=== PATIENT | male | born 1975 | race Caucasian/White ===

== ENCOUNTER 2020-09-05 13:09 | Outpatient (RCR) | payer BC, SELFPAY | END 2020-11-18 23:59 | LOC: IMMUN 13:09 | PROVIDERS: Visit Provider Family Medicine | DX: Z23 Encounter for immunization (principal) | CPT/HCPCS: 0001A; 0002A; 91300 ==

== ENCOUNTER 2021-10-14 06:45 | Observation (INO) | payer BC, SELFPAY ==
[2021-10-14] VITALS (9 sets, daily range): BP systolic 103–162; BP diastolic 74–105; PULSE 65–116; RESP 14–18; TEMP 35.9–36.9; O2SAT 93–100; BMI 34.0
--- NOTE | 2021-10-14 | APP_PTH ---
PATIENT: JHONY SON LOC: [facility]3 U#:[id number] AGE/SX: 46/M ROOM: [facility] RE10/14/[address]: Dr. Nathaniel Tomas MD : 1975 BED: 1 DIS: 10/14/2021 SPEC #: [id number] RECD: 10/14/21 13:19 STATUS: LANDON RAMOSMychal #: [id number] DAXA: 10/14/21 00:[address]: Nathaniel Tomas DEPT: SURGICAL PATHOLOGY RECD BY: Jacob Monaco ENTERED: 10/15/21 08:03 SP TYPE: APPENDIX OTHR DR: No Primary Care Phys Tissues: Appendix, NOS Procedures: Surgery Specimen Level III HEADER OPERATION: Laparoscopic Appendectomy PRE-OP DIAGNOSIS: Acute Appendicitis TISSUE SUBMITTED: Appendix MICROSCOPIC DIAGNOSIS Appendix, appendectomy: Acute appendicitis. Acute serositis. AM:italo 10/16/2021 MICROSCOPIC DESCRIPTION Slides are reviewed. GROSS DESCRIPTION Received in fixative is one container labeled with the patient's name and designated appendix. The specimen consists of a C-shaped appendix measuring 8.5 cm in length and up to 1.5 cm in diameter. The attached periappendiceal adipose tissue measures up to 1.5 cm in width. No obvious perforation is identified. The lumen contains fecal material. No fecalith is identified. Lead Infrastructure Architect sections are submitted in two cassettes. / SJ:italo 10/15/2021 TC:2 CPT: 85279
--- NOTE | 2021-10-14 07:14 | US_ITS ---
STUDY: ABDOMINAL ULTRASOUND - RIGHT UPPER QUADRANT REASON FOR VISIT: Male, 46 years old pain -- EPIGASTRIC PAIN X 1 DAY TECHNIQUE: Ultrasound evaluation of the right upper quadrant was performed with real-time and static caban-scale imaging. TECHNICAL QUALITY: Adequate. COMPARISON: None. FINDINGS: Liver: The liver measures 16.9 cm. There is increased echogenicity consistent with fatty infiltration. The bile ducts are within normal limits. There is hepatic color flow. The direction of portal flow is hepatopetal. There is a 2 cm x 1.6 cm x 2.1 cm echogenic nodule in the right lobe of the liver suggestive of an hemangioma. Gallbladder: Normal distended gallbladder. The gallbladder wall measures 2.9 mm. There is a negative sonographic Gibson''s sign. There is no pericholecystic fluid. There are no gallstones. Common Bile Duct (C.B.D.): The common bile duct measures 6.3 mm. Pancreas: Normal size of the head, body and tail of the pancreas. There is increased echogenicity of the pancreas. There is no demonstrated pancreatic mass or cyst. Right Kidney: Normal size of the right kidney. The right kidney measures 12.5 cm x 5.2 cm x 6.4 cm. Normal renal cortex. The right cortex measures 1.8 cm. There is no demonstrated renal mass or cyst. There is no right hydronephrosis. US/Gallbladder IMPRESSION: Mild degree of fatty infiltration of the liver. Incidental finding is made of a 2 cm x 1.6 cm x 2.1 cm hemangioma in the right lobe of the liver. Electronically Signed: Sunny Rolon MD at 8:41 EDT ,
--- NOTE | 2021-10-14 07:16 | EX.ED.DYSGE1 ---
HPI History of Present Illness Chief Complaint: Abd Pain Narrative Narrative: Patient is a 46-year-old male with no reported significant medical or surgical history. He states that he is traveling right now for work and he awoke around 1 or 2 in the morning with generalized abdominal discomfort. He states it felt like there was a muscle cramp but deep within his stomach. He states that he felt he had to have a bowel movement and did so and that it was normal without any type of diarrhea or blood. He also states he urinated and there is no pain with this or discoloration. He states he tried to lay back down and go to sleep but the pain has been persistent and secondary to this he comes in for evaluation [facility] Medical History no medical history no medical history Home Medications NK 10/14/21 [History Last Taken Unknown] Allergy/AdvReac Type Severity Reaction Status Date / Time No Known Allergies Allergy Verified 10/14/21 06:46 Surgical History (Updated 10/14/21 @ 06:47 by Fausto Arenas) H/O vasectomy Social History Smoking Status: Never smoker ROS [facility] ED Constitutional Constitutional ED: Denies chills or fever(s) ENT ENT ED: Denies sore throat Cardiovascular Cardiovascular: Denies chest pain Respiratory/Chest Respiratory/Chest: Denies cough or dyspnea Gastrointestinal Gastrointestinal: Reports abdominal pain; Denies constipation, diarrhea, nausea or vomiting Genitourinary Genitourinary ED: Denies dysuria or hematuria Musculoskeletal Musculoskeletal: Denies back pain or myalgias Integumentary Denies rash Neurologic Neurologic: Denies headache(s) Hematologic/Lymphatic Hematologic/Lymphatic: Denies easy bleeding or easy bruising EXAM Physical Exam Const Vital Signs: 10/14/21 06:47 Temperature 96.7 F L Temperature Source Temporal Pulse Rate 65 Respiratory Rate 16 Blood Pressure 162/101 H Blood Pressure Mean 121 Pulse Ox 100 Oxygen Delivery Method Room Air Positive well nourished and well developed General Appearance ED: well developed HEENT Reports moist mucous membranes Eyes PERRL and EOMs intact bilaterally General Eye ED: Negative for scleral icterus Neck supple Resp normal respiratory effort and clear to auscultation bilaterally Cardio regular rate and regular rhythm Rate: other Other Details: Radial pulses are +2-4 bilaterally are equal and symmetric GI non-distended GI Narrative: Abdomen is soft and nondistended with slightly hyperactive bowel sounds. There is pain with palpation in the midepigastric and right upper quadrant but greatest in the right upper quadrant with mild guarding at the site. There is also mild pain with palpation in the right lower quadrant but negative heel strike psoas and obturator signs. No fluid wave or pulsatile mass Palpation: soft Back/Spine no CVA tenderness Extremity normal to inspection Neuro oriented x3 and CN's II-XII intact bilaterally Sensorium / Orientation: alert Motor Exam: strength 5/5 throughout Psych mental status grossly normal Skin no rashes or lesions noted MDM MDM MDM Narrative Medical decision making narrative: Patient presented to the ER hypertensive but this is secondary to pain but otherwise afebrile. His pain is greatest in the right upper quadrant so therefore elected to start with basic blood work and a ultrasound. His white blood cell count is slightly elevated and therefore CT may be needed if ultrasound does not show any sign of gallbladder derangement and pain persist. Lab Data Attestation: I reviewed the patient's lab results. Labs: Laboratory Results - last 24 hr 10/14/21 10/14/21 06:54 06:54 WBC 15.1 H RBC 5.25 Hgb 15.3 Hct 44.3 MCV 84.4 MCH 29.1 MCHC 34.5 RDW Std Deviation 36.0 RDW Coeff of Tiana 11.9 Plt Count 309 MPV 10.3 Immature Gran % (Auto) 0.500 Neut % (Auto) 86.7 H Lymph % (Auto) 7.1 L [place] % (Auto) 5.4 Eos % (Auto) 0.1 Baso % (Auto) 0.2 Absolute Neuts (auto) 13.1 H Absolute Lymphs (auto) 1.07 Nucleated RBC % 0 Sodium 138 Potassium 3.6 Chloride 104 Carbon Dioxide 27.0 Anion Gap 7 BUN 17 Creatinine 1.10 Estim Creat Clear Calc 92.10 Est GFR (MDRD) Af Amer 92 Est GFR (MDRD) Non-Af 76 BUN/Creatinine Ratio 15.5 Glucose 118 H Calcium 9.1 Total Bilirubin 0.60 Direct Bilirubin 0.10 AST 32 ALT 70 H Alkaline Phosphatase 73 Total Protein 8.0 Albumin 4.2 Globulin 3.8 Lipase 154 Discharge Plan Triage Chief Complaint: Abd Pain ED Provider: Milind Raza Dx/Rx/DC Orders Prescriptions: No Action NK RF: 0 Primary Care Provider: Care Physician,No Primary Referrals: Care Physician,No Primary [Primary Care Provider] -
[2021-10-14] MEDS: Ketorolac 30 MG/ML Syringe IV (07:22)
[2021-10-14] MEDS: 0.9% Normal Saline 1,000 ML 999 ML IV (07:23)
[2021-10-14 07:32] LABS: Absolute Lymphocyte Count 1.07 X10^3/uL (0.83-4.51); Absolute Neutrophil Count 13.1 X10^3/uL (2.0-7.7); Basophil# 0.03 X10^3/uL; Basophil% 0.2 % (0-1); Eosinophil# 0.02 X10^3/uL; Eosinophils% 0.1 % (0-5); Hematocrit 44.3 % (40-54); Hemoglobin 15.3 g/dL (13.0-16.5); Lymphocyte # 1.07 X10^3/ul (0.83-4.51); Lymphocyte % 7.1 % (19-41); Mean Corp Hgb Conc 34.5 g/dL (32-36); Mean Corpuscular Hgb 29.1 pg (27.0-32.0); Mean Corpuscular Volume 84.4 fL (80-94); Mean Platelet Vol. 10.3 fl (6.2-12.0); Monocyte# 0.82 X10^3/uL; Monocyte% 5.4 % (0-10); NRBC Flagged by Analyzer 0 % (0-5); Neutrophil # 13.11 X10^3/uL (2.7-7.7); Neutrophil % 86.7 % (47-70); Platelet Count 309 K/mm3 (150-450); RBC Distribution Width CV 11.9 % (11.6-14.6); Red Blood Count 5.25 M/mm3 (4.6-6.2); White Blood Count 15.1 K/mm3 (4.4-11.0)
[2021-10-14 07:50] LABS: AST(SGOT) 32 U/L (15-37); Alanine Aminotransfer ALT/SGPT 70 U/L (16-61); Albumin, Serum 4.2 g/dL (3.2-5.0); Alkaline Phosphatase 73 U/L (45-117); Anion Gap 7 (5-15); BUN 17 mg/dL (7-18); BUN/Creat Ratio 15.5 RATIO (10-20); Calcium,Total 9.1 mg/dL (8.5-10.1); Chloride 104 mmol/L (98-107); EST Glomerular Filtration Rate 76 mL/min (>60); Est Glom Filt Rate - Afr Amer 92 mL/min (>60); Globulin 3.8 g/dL (2.2-4.2); Glucose 118 mg/dL (74-106); Lipase 154 U/L (73-393); Potassium 3.6 mmol/L (3.5-5.1); Sodium Level 138 mmol/L (136-145)
--- NOTE | 2021-10-14 09:52 | CT_ITS ---
STUDY: CT ABDOMEN AND PELVIS WITH CONTRAST REASON FOR EXAM: Male, 46 years old. RLQ pain RADIATION DOSAGE (If Supplied By Facility): CTDIvol = ( 20.02 ) mGy, DLP = ( 1321.75 ) mGycm TECHNIQUE: Transaxial images were obtained from the dome of the diaphragm to the symphysis pubis without oral contrast. IV 100mL Isovue-300 was administered. Sagittal and coronal images were reconstructed. Individualized dose optimization techniques were used for this CT. COMPARISON: Comparison is made with prior sonogram done earlier today. FINDINGS: Calcified right hilar lymph nodes. Tiny calcified granuloma in the peripheral aspect of the right lower lobe. The visualized portions of the heart are within normal limits. There is decreased attenuation of the liver consistent with steatosis. Normal gallbladder and extrahepatic biliary system. Normal spleen. Normal pancreas. Normal bilateral adrenal glands. Normal right kidney. Normal left kidney. Normal visualized stomach. Normal small intestine. Normal colon. There is a tubular, thick-walled appendix (>7mm), consistent with acute appendicitis. A calcified appendicolith is seen within it. This measures 8.1 mm. Normal abdominal aorta. Normal inferior vena cava. There is borderline retroperitoneal lymphadenopathy with enlarged nodes no greater than 10mm in the short axis diameter. Distended urinary bladder. There is a left-sided inguinal hernia containing adipose tissue. Normal osseous structures. CT/Abdomen/Pelvis W IV Cont ONLY IMPRESSION: Findings in keeping with acute appendicitis. A 8.1 mm appendicolith is seen within the appendiceal lumen. Diffuse fatty infiltration of the liver. Electronically Signed: Sunny Rolon MD at 10:32 EDT ,
--- NOTE | 2021-10-14 10:29 | EKG12_ITS ---
Test Reason : PRE-OP Blood Pressure : / mmHG Vent. Rate : 085 BPM Atrial Rate : 085 BPM P-R Int : 168 ms QRS Dur : 094 ms QT Int : 374 ms P-R-T Axes : 045 003 020 degrees QTc Int : 445 ms Normal sinus rhythm Normal ECG Confirmed by WHITLEY ARORA, VIRIDIANA ([id number]), online editor RBOIN MCDANIEL ([id number]) on 10/16/2021 8:11:26 AM Referred By: NIK Confirmed By:RICHARD ARREAGA MD
--- NOTE | 2021-10-14 10:33 | NURSING ---
NO OLD EKGS
--- NOTE | 2021-10-14 10:45 | PCM.HP.STD ---
HPI - General HPI Narrative JHONY SON, is a 46 M who presents with abdominal pain. The patient reports that this morning he had abdominal pain that was generalized and then moved to the right lower quadrant. No nausea or vomiting. No fevers or chills. PFSH Medical History no medical history Home Medications NK 10/14/21 [History Last Taken Unknown] Allergy/AdvReac Type Severity Reaction Status Date / Time No Known Allergies Allergy Verified 10/14/21 06:46 Surgical History (Updated 10/14/21 @ 06:47 by Fausto Arenas) H/O vasectomy Social History Smoking Status: Never smoker ROS Constitutional Constitutional: Denies anorexia or chills Eyes Eyes: Denies change in vision ENT HEENT: Denies dysphagia Cardiovascular Cardiovascular: Denies chest pain Respiratory/Chest Respiratory/Chest: Denies cough or dyspnea Gastrointestinal Gastrointestinal: Reports abdominal pain; Denies diarrhea, dysphagia, melena or nausea Musculoskeletal Musculoskeletal: Denies abnormal gait Integumentary Integumentary: Denies jaundice Neurologic Neurologic: Denies dizziness Psychiatric Psychiatric: Denies anxiety Endocrine Endocrinology: Denies flushing Vital Signs Vital Signs Vital Signs: 10/14/21 06:47 Temperature 96.7 F L Temperature Source Temporal Pulse Rate 65 Respiratory Rate 16 Blood Pressure 162/101 H Blood Pressure Mean 121 Pulse Ox 100 Oxygen Delivery Method Room Air Weight Weight: 250 lb 6.4 oz Body Mass Index (BMI) 34.0 Physical Exam Const oriented x3 and no apparent distress Resp normal respiratory effort Cardio regular rate and regular rhythm GI soft to palpation Palpation: tender RLQ Results Lab / Micro Data Result Diagrams: 10/14/21 06:54 10/14/21 06:54 Labs: Laboratory Results - last 24 hr 10/14/21 06:54: WBC 15.1 H, RBC 5.25, Hgb 15.3, Hct 44.3, MCV 84.4, MCH 29.1, MCHC 34.5, RDW Std Deviation 36.0, RDW Coeff of Tiana 11.9, Plt Count 309, MPV 10.3, Immature Gran % (Auto) 0.500, Neut % (Auto) 86.7 H, Lymph % (Auto) 7.1 L, [place] % (Auto) 5.4, Eos % (Auto) 0.1, Baso % (Auto) 0.2, Absolute Neuts (auto) 13.1 H, Absolute Lymphs (auto) 1.07, Nucleated RBC % 0 10/14/21 06:54: Sodium 138, Potassium 3.6, Chloride 104, Carbon Dioxide 27.0, Anion Gap 7, BUN 17, Creatinine 1.10, Estim Creat Clear Calc 92.10, Est GFR (MDRD) Af Amer 92, Est GFR (MDRD) Non-Af 76, BUN/Creatinine Ratio 15.5, Glucose 118 H, Calcium 9.1, Total Bilirubin 0.60, Direct Bilirubin 0.10, AST 32, ALT 70 H, Alkaline Phosphatase 73, Total Protein 8.0, Albumin 4.2, Globulin 3.8, Lipase 154 Radiology Impression Gallbladder Ultrasound 10/14/21 07:14 IMPRESSION: Mild degree of fatty infiltration of the liver. Incidental finding is made of a 2 cm x 1.6 cm x 2.1 cm hemangioma in the right lobe of the liver. Electronically Signed: Sunny Rolon MD at 8:41 EDT , Abdomen/Pelvis CT 10/14/21 09:52 IMPRESSION: Findings in keeping with acute appendicitis. A 8.1 mm appendicolith is seen within the appendiceal lumen. Diffuse fatty infiltration of the liver. Electronically Signed: Sunny Rolon MD at 10:32 EDT , Assessment & Plan Assessment/Plan (1) Acute appendicitis: QUALIFIERS: Acute appendicitis type: unspecified acute appendicitis type Qualified Code(s): K35.80 - Unspecified acute appendicitis PLAN: Patient has acute appendicitis on CT scan. I recommended laparoscopic appendectomy. I discussed the surgery including the risks of bleeding, infection, injury to other organ such as the bowel, ureter, bladder. Patient understands the risks and will be taken for laparoscopic appendectomy. Patient will be started on antibiotics. Nathaniel Tomas MD Pager: [facility] [address] [place] [address], [address] [place] [address] Office:
--- NOTE | 2021-10-14 10:48 | NURSING ---
SURGERY OBS BRITTNI ACUTE APPENDICITIS
[2021-10-14 11:11] LABS: International Normalized Ratio 1.1; Prothrombin Time (Protime)PT. 13.4 SECONDS (11.7-14.9)
[2021-10-14 11:12] LABS: Partial Thromboplast Time 20.4 Seconds (24.1-36.2)
[2021-10-14] MEDS: Lactated Ringers 1,000 ML 125 ML IV ×2 (11:50→13:00)
[2021-10-14] MEDS: 0.9% Normal Saline (Pres. free 10 ML Vial (12:41)
--- NOTE | 2021-10-14 13:15 | OP.PCM_ITS ---
Problems Associated Problem List Diagnoses (1) Acute appendicitis: Report of Operation Date of Procedure: 10/14/21 Pre-Operative Diagnosis: Acute appendicitis Post-Operative Diagnosis: Same Surgery/Procedure Performed:: Laparoscopic appendectomy Specimen's removed: Appendix Description of Procedure: The patient was brought into the operating room and general anesthesia was induced. The left arm was tucked and the abdomen was prepped and draped in usual sterile fashion. A small midline incision was made superior to the umbilicus and deepened to the level of the fascia. The fascia was elevated and incised. The peritoneum was also elevated and incised. A finger sweep was performed and a balloon trocar was placed into the abdomen and inflated. The abdomen was insufflated to 15 mmHg and the camera was inserted and the abdomen was inspected for any injuries upon entering the abdomen. There were none. The patient was placed in Trendelenburg position and a 5 mm ports placed in the left lower quadrant and suprapubic areas under direct visualization. Next using atraumatic bowel graspers the appendix was identified. The appendix was grasped and elevated and Enseal was used to take down the mesoappendix. A stapler was used to come across the base of the appendix. The appendix was then placed in Endo Catch bag and removed through the umbilical incision. The staple line was inspected and found to be hemostatic and intact. The 2 5 mm ports are removed under direct visualization. The balloon trocar was deflated and removed and all the air was removed from the abdomen. The umbilical incision fascia was closed with an 0 Vicryl [id number] suture. The incisions were then irrigated with saline and dried. Local anesthetic was injected into the incision sites. The skin incisions were then closed with interrupted 4-0 Monocryl suture and Steri- Strips. Bandages were applied and the patient was awoken and taken to PACU in stable condition. Patient tolerated the procedure well. Admit VTE Documentation VTE Mechan Device Prophylaxis: SCD's
--- NOTE | 2021-10-14 13:45 | EX.PCM.DISCH ---
Discharge Instructions Procedure Appendectomy Diet Discharge Diet: Light diet - advance as tolerated Activity Discharge Activity: May Not Drive (for 2-3 days or while taking narcotic pain medications.) May shower in (days): 1 Lifting Restrictions: 20 lbs for 2 weeks Dressing / Incision Call your doctor if your incision/area has: Continuous Slow Oozing, Sudden Increased Bleeding, Increased Pain/ Swelling, Increased Redness and Foul Smelling Discharge Call your doctor if you observe: Fever of 101 or Higher Suture Line Care: Avoid Pulling/Pushing and Avoid Pinching/Bending Remove Dressing in: 2 days Cleanse incision/area with: Soap & Water Additional Dressing/Incision Instructions:: Keep dressing clean and dry. Change or remove dressing in 2 days. Leave steri strips for 1 week. May protect with a gauze bandaid. Follow Up Care Please Follow Up With: Nathaniel Tomas MD When: Please call to schedule 2 week follow up appointment. [phone] Test Results: Test results from this visit will be discussed in further detail at your follow-up appointment, if applicable. Discharge Plan Admission Admit Date/Time: 10/14/21 13:16 Attending Provider: Nathaniel Tomas Primary Care Provider: Care Physician,Valerie Primary Discharge Orders/Prescriptions Prescriptions: New acetaminophen [Tylenol] 325 mg Tablet 650 mg PO Q4H PRN PRN (Reason: Pain 1-10 Or Fever) Qty: 0 RF: 0 oxycodone 5 mg Tablet 5 - 10 mg PO Q4H PRN PRN (Reason: Pain Score 4-10) 5 Days Qty: 20 RF: 0 Continued NK RF: 0 Referrals / Follow Up: Care Physician,No Primary [Primary Care Provider] - Disposition Disposition (needs filled in before D/C Order can be placed): Home, Self Care
[2021-10-14] MEDS: oxyCODONE 5 MG Tablet PO (15:44)
[2021-10-14] MEDS: Acetaminophen 325 MG Tablet 650 MG PO (15:45)
== END 2021-10-14 18:00 | disposition home or self-care (01) ==
LOC: ED 10:39 → MS3 13:23
PROVIDERS: Emergency Medicine; Admitting Provider Surgery; Emergency Provider Emergency Medicine; Visit Provider Surgery
PROC: 0DTJ4ZZ Resection of Appendix, Percutaneous Endoscopic Approach (ICD-10-PCS; CPT 44970; principal; 2021-10-14 11:20)
DX: K35.80 Unspecified acute appendicitis (principal)
CPT/HCPCS: 44970; 00840; 74177; 76705; 80048; 80076; 83690; 85025; 85610; 85730; 86850; 86900; 86901; 87811; 88304; 93005; 96361; 96374; 99218; 99283; J7030; J7120; Q9967; A4216; C1760; G0378; J2405; J3490